=== PATIENT | male | born 1995 | race Caucasian/White ===

== ENCOUNTER 2017-09-03 18:48 | Emergency (ER) | payer OTHER ==
--- NOTE | 2017-09-03 19:00 | EDPHY ---
H & P Smoking Status: Unknown if ever smoked Time Seen by Provider: 09/03/17 18:51 HPI/ROS: CHIEF COMPLAINT: Left ankle injury HISTORY OF PRESENT ILLNESS: 21-year-old male presents to the emergency department by ambulance with left ankle injury. The patient was rock climbing and fell about 810 ft and landed on a ledge injuring his left ankle. He complains of isolated pain to the left ankle. He denies hitting his head or losing consciousness. Denies pain in his left knee or left hip. Denies symptoms in the right lower extremity or upper extremities bilaterally. REVIEW OF SYSTEMS: Constitutional: No fever, no chills. Eyes: No double or blurry vision. ENT: No sore throat. Respiratory: No cough, no shortness of breath. Cardiac: No chest pain. Gastrointestinal: No abdominal pain, vomiting or diarrhea. Genitourinary: No dysuria. Musculoskeletal: No neck or back pain. Skin: No rashes. Neurological: No headache. (Kelly Lutz) Past Medical/Surgical History: Orthopedic injuries (Kelly Lutz) Social History: Single and lives in [place] (Kelly Lutz) Physical Exam: General Appearance: Alert, no distress. No visible signs of trauma to his head. Mentating normally and answering questions appropriately. Eyes: Pupils equal and round. Extraocular motions are all intact. ENT: Mouth: Mucous membranes moist. Respiratory: No wheezing, rhonchi, or rales, lungs are clear to auscultation. Cardiovascular: Regular rate and rhythm. Gastrointestinal: Abdomen is soft and nontender, no masses, no rebound or guarding, bowel sounds normal. Neurological: Alert and oriented x 3, cranial nerves II through XII grossly intact Skin: Warm and dry, no rashes. Musculoskeletal: Nontender to palpate along the cervical, thoracic or lumbar spine. Neck is supple. Extremities: Obvious swelling noted to the left ankle. Tenderness with palpation especially over the medial aspect of the left ankle. Nontender over the lateral aspect. Limited dorsi and plantar flexion secondary to pain. Normal sensation to light touch with normal 2 point discrimination. No evidence of open fracture puncture wound. No abrasions. Calf is nontender. Achilles tendon is intact. Left knee is nontender. Left hip nontender. Full range of motion of the right lower extremity and upper extremities bilaterally. Psychiatric: Patient is oriented X 3, there is no agitation. (Kelly Lutz) Constitutional: Initial Vital Signs Temperature (C) 36.9 C 09/03/17 19:02 Heart Rate 108 H 09/03/17 19:02 Respiratory Rate 16 09/03/17 19:02 Blood Pressure 127/86 H 09/03/17 19:02 O2 Sat (%) 99 09/03/17 19:02 O2 Delivery Mode Room Air Allergies/Adverse Reactions: No Known Allergies Allergy (Unverified 09/03/17 19:02) Home Medications: Medication Instructions Recorded oxyCODONE/APAP 325 [Percocet 1 - 2 tab PO Q4-6PRN PRN #15 tab 09/03/17 5/325] Medical Decision Making - Diagnostics Imaging: I viewed and interpreted images myself - Diagnostics Imaging Results: Imaging Impressions Ankle X-Ray 09/03/17 18:57 Impression: Comminuted, unstable bimalleolar left ankle fracture with lateral displacement of the talus. Ankle X-Ray 09/03/17 19:51 Impression: Bimalleolar left ankle fracture with improved alignment status post cast placement. ED Course/Re-evaluation: 21-year-old male presents to the emergency department with left ankle injury. X -rays reveal comminuted bimalleolar fracture of the left ankle. Reduction and splint placement was performed by Dr. Gross. Patient will be discharged with crutches. He will be nonweightbearing. He was given prescription for Percocet. (Kelly Lutz) Differential Diagnosis: Differential diagnosis considered includes open fracture, closed fracture, neurovascular injury (Janes Gross) Including but not limited to fracture, dislocation, contusion, sprain (Kelly Lutz) Other Provider: Independent physician evaluation: I evaluated and participated in the management of the patient. I also evaluated the patient independently. My co-signature indicates that I have reviewed this chart and I agree with the findings and plan of care as documented. My personal H&P findings include: The patient presents to the ED with left ankle pain and deformity after a fall rock climbing. The patient denies knee pain, hip pain, back pain or additional traumatic injury. Physical exam: General Appearance: Alert, no distress Head: Atraumatic Eyes: Pupils equal, round, reactive ENT, Mouth: No hemotympanum, no oral trauma Neck: Nontender, trachea midline Respiratory: No chest wall tender, subcutaneous air, lungs clear bilaterally Cardiovascular: Regular rate and rhythm Abdomen: Abdomen is soft and nontender, pelvis stable Skin: No lacerations, No abrasion Back: No midline T/L/S pain Extremities: Obvious deformity to the left foot and ankle with lateral displacement of the foot Neurological: A&Ox3, normal motor function, normal sensory exam ED course: The patient presents to the ED with a displaced bimalleolar fracture dislocation of the ankle. The patient had an IV established. He received 100 mcg of fentanyl. The patient underwent close reduction of his fracture dislocation performed by myself. PROCEDURE: GENERAL FRACTURE REDUCTION Procedure: Reduction of angulated displaced ankle fracture dislocation OF THE LEFT ANKLE. IV established. O2 administered. Neurovascular exam intact pre- procedure. Given fentanyl for pain and sedation. The left by malleolar fracture dislocation was reduced using traction. Post reduction x-ray demonstrates markedly improved anatomic alignment. Three-way plaster splint applied by myself. The procedure was performed by myself, Janes Gross. (Janes Gross) - Data Points Medications Given: Discontinued Medications Fentanyl (Sublimaze) 100 mcg IVP EDNOW ONE Stop: 09/03/17 19:23 Last Admin: 09/03/17 19:42 Dose: 100 mcg Oxycodone/Acetaminophen (Percocet 5/325mg Prepack#4) 1 btl TAKEHOME EDNOW ONE Stop: 09/03/17 20:32 Last Admin: 09/03/17 20:47 Dose: 1 btl Departure - Departure Disposition: Home, Routine, Self-Care Clinical Impression: Closed left ankle fracture Qualifiers: Encounter type: initial encounter Qualified Code(s): S82.892A - Other fracture of left lower leg, initial encounter for closed fracture Condition: Good Instructions: Oxycodone/Acetaminophen (By mouth), Ankle Fracture (ED) Additional Instructions: Keep splint on until follow-up with an orthopedic surgeon. Nonweightbearing, use crutches. Ibuprofen 600 mg every 8 hr as needed for pain. Ice and elevate to help reduce swelling. Percocet for severe pain as directed. Return to the emergency department if you developed numbness or tingling in your toes, increasing pain or swelling or any other concerns. Referrals: Pritesh Srinivasan MD [Medical Doctor] - 1-2 days without fail Prescriptions: oxyCODONE/APAP 5/325 [Percocet 5/325] 1 - 2 tab PO Q4-6PRN PRN #15 tab PRN Reason: For Moderate To Severe Pain
[2017-09-03] MEDS ORDERED: fentaNYL 100 MCG/2 ML INJ IVP ONE (19:22)
[2017-09-03] MEDS ORDERED: fentaNYL 100 MCG/2 ML INJ ONE (19:29)
[2017-09-03] MEDS ORDERED: OXYCODONE/APAP 5/325MG PREPACK#4 BTL TAKEHOME ONE (20:31)
[2017-09-03 20:59] VITALS: BP 121/89
== END 2017-09-03 21:02 | disposition home or self-care (01) ==
LOC: EDUNIT#
PROC: 0SSGX5Z Reposition Left Ankle Joint with External Fixation Device, External Approach (ICD-10-PCS; principal; 2017-09-03)
DX: S82.842A Displaced bimalleolar fracture of left lower leg, initial encounter for closed fracture (principal); W17.89XA Other fall from one level to another, initial encounter; Y99.8 Other external cause status; Y93.31 Activity, mountain climbing, rock climbing and wall climbing
CPT/HCPCS: J3010